=== PATIENT | male | born 1960 | race Caucasian/White ===

== ENCOUNTER 2024-10-31 09:47 | Day surgery (SDC) | payer OTHER ==
[2024-10-31] VITALS (12 sets, daily range): BP systolic 101–161; BP diastolic 54–91
[~2024-10-31] VITALS: Ht 160 cm; Wt 92.0 kg
[~2024-10-31 09:47] MED LIST: Lactated Ringer's 1,000 ML IV SCH; propofoL 20 ML IV ONE
[2024-10-31] MEDS ORDERED: AMLO5 PO (10:58)
[2024-10-31] MEDS ORDERED: Aspir 8181 MG PO (10:58)
[2024-10-31] MEDS ORDERED: LATA.005SO (10:58)
[2024-10-31] MEDS ORDERED: DORZOPSO (10:58)
--- NOTE | 2024-10-31 11:17 | NUR ---
10/31/24 1117 Landen Kenney CONFIRMED AND REVIEWED H&P, MEDCICATIONS, ALLERGIES, MEDICAL HISTORY, RESPIRATORY HISTORY, VITAL SIGNS, 3-LEAD EKG, CONSENTS, AND PHYSICIAN ORDERS. PATIENT CONFIRMS NPO STATUS AND AGREES WITH SCHEDULED PROCEDURE. MONITOR INTACT WITH CONTINUOUS PULSE OXIMETRY, CAPNOGRAPHY, 3-LEAD EKG, INTERMITTENT BP. SUPPLEMENTAL O2 TO BE TITRATED THROUGHOUT PROCEDURE TO MAINTAIN O2 SATURATION ABOVE 90%. PATIENT DETERMINED TO BE ASA APPROPRIATE FOR PROPOFOL SEDATION PRIOR TO START OF PROCEDURE BY DR. ALFONSO.
--- NOTE | 2024-10-31 12:00 | NUR ---
Discharge instructions reviewed with patient. Patient verbalizes understanding. Copy given to patient to take home. Patient States Post-Procedure ride home has been arranged. Discharged via wheelchair to private car for ride home.
== END 2024-10-31 11:55 | disposition home or self-care (01) ==
LOC: ORSCMMR 09:47 → ORD 10:30 → ORSCMMR 10:30
PROVIDERS: Internal Medicine Gastroenterology
PROC: 0DBM8ZX Excision of Descending Colon, Via Natural or Artificial Opening Endoscopic, Diagnostic (ICD-10-PCS; principal; 2024-10-31 10:30)
DX: Z12.11 Encounter for screening for malignant neoplasm of colon (principal); D12.4 Benign neoplasm of descending colon; I10 Essential (primary) hypertension; Z79.82 Long term (current) use of aspirin; Z79.899 Other long term (current) drug therapy
CPT/HCPCS: 88305; J2704; J7120